=== PATIENT | male | born 1985 | race Caucasian/White ===

== ENCOUNTER 2024-06-27 20:18 | Day surgery (SDC) | payer BC, SELFPAY ==
[2024-06-27] VITALS (7 sets, daily range): BP systolic 122–142; BP diastolic 68–102; BMI 25.8; BMI 25.7
--- NOTE | 2024-06-27 14:36 | ED.GENMED ---
History of Present Illness
General
Chief Complaint: Abdominal Pain
Source: patient
Time Seen by Provider: 06/27/24 13:54
History of Present Illness
History of Present Illness:
39-year-old male who presents with mid abdominal pain that now radiates to right lower quadrant. Patient states that started with some discomfort last night and then had diarrhea. Took some Pepto-Bismol and was able to sleep but today the pain
persisted. Did have an episode of nausea and vomiting. Seen at urgent care and sent for further evaluation. No fevers. No previous surgeries.
Past History
Past History
ED Past Medical History: GERD
Phy Exam
Physical Exam
Physical Exam:
CONSTITUTIONAL Patient alert and oriented to person, place and time. Well-appearing. Vital signs reviewed.
HEAD atraumatic, normocephalic.
EYES eyelids normal to inspection, Pupils equally round and reactive to light, Extraocular muscles intact, Conjunctiva normal, Sclera normal.
NECK normal range of motion, Trachea midline, no jugular venous distention.
RESPIRATORY CHEST No respiratory distress noted, Chest expansion equal, Bilateral breath sounds clear.
CARDIOVASCULAR regular rate and rhythm, Heart sounds normal.
ABDOMEN moderate right lower quadrant tenderness, Bowel sounds normal. No distention.
BACK normal inspection, no obvious deformities
UPPER EXTREMITY range of motion normal, Motor strength normal, no cyanosis, no edema.
LOWER EXTREMITY range of motion normal, Motor strength normal, no cyanosis, no edema.
NEURO Speech normal, No focal motor deficits, [place] coma scale 15, Memory normal, Cranial Nerves intact to screening exam.
SKIN skin warm, dry, and normal in color.
PSYCHIATRIC patient oriented to person place and time, Normal affect.
Course
Orders/Labs/Results
Orders:
Orders
06/27/24 14:22
Morphine Sulfate 4 mg IV NOW STA
Ondansetron Injectable [Zofran] 4 mg IV NOW STA
06/27/24 14:34
0.9% Sodium Chloride 1000 ml [Nss] 1,000 ml IV BOLUS
06/27/24 14:35
CT Abd/pel W Iv And Oral Contr Urgent
Comment:
Reason For Exam: Abdominal pain, N/V
Iohexol [Omnipaque] See Protocol PO NOW STA
06/27/24 15:10
Complete Blood Count/With Diff Urgent
Comprehensive Metabolic Panel Urgent
Lipase Urgent
06/27/24 15:27
Ketorolac [Toradol] 15 mg .ROUTE .STK-MED ONE
06/27/24 15:28
Ketorolac [Toradol] 15 mg IV NOW STA
06/27/24 16:44
Urinalysis Reflex To Culture Urgent
Date Specimen was Collected: 06/27/24
Time Specimen was Collected: 15:03
Urine Microscopic Reflex Cult Urgent
06/27/24 18:59
Piperacillin/Tazo 3.375 Gram [Zosyn] 3.375 gram in 50 ml IV NOW
Abnormal Lab Results
06/27/24 06/27/24
15:10 16:44
WBC 13.6 H 10^3/uL
(4.8-10.8)
Abs Immat Gran (auto) 0.1 H 10^3/uL
(0-0.05)
Absolute Neuts (auto) 11.9 H 10^3/uL
(1.4-6.5)
Absolute Lymphs (auto) 0.9 L 10^3/uL
(1.2-3.4)
Absolute Monos (auto) 0.7 H 10^3/uL
(0.1-0.6)
Neutrophils % 87.4 H %
(42.2-75.2)
Lymphocytes % 6.6 L %
(20.5-51.1)
Glucose 117 H mg/dl
(70-99)
Total Bilirubin 2.9 H mg/dl
(0.2-1.3)
Urine Ketones 3+ A
(Negative)
Ur Occult Blood Reflex 2+ A
(Negative)
Leukocyte Esterase Rfl Trace A
(Negative)
Urine RBC 7-10 A /HPF
(0-2)
Urine Bacteria (Reflex) Few A
(Negative)
06/27/24 15:10
06/27/24 15:10
Vital Signs
Initial and Last Documented VS:
Initial Vital Signs
Temp Pulse Resp BP Pulse Ox
98.1 F 65 18 127/68 99
06/27/24 13:40 06/27/24 13:40 06/27/24 13:40 06/27/24 13:40 06/27/24 13:40
Last Documented Vital Signs
Temp Pulse Resp BP Pulse Ox
98.1 F 86 20 136/82 100
06/27/24 13:40 06/27/24 18:00 06/27/24 18:00 06/27/24 18:00 06/27/24 18:00
MDM/Problems Addressed
MDM/Problems Addressed:
Acute appendicitis
*Radiology
Radiology exam reviewed: preliminary read by ED provider (Thickened appendix noted) and radiology read reviewed
*Pulse Oximetry
Patient hypoxic: no
*Critical Care Note
Total Time (30-74mins, 75-104mins- exclusive of procedures): Not Applicable
Data Reviewed
Source: patient and spouse
Patient Management
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 Amador)
Escalation/DeEscalation of care consider admission/obs:
Case discussed with surgery. Patient stable. Pain controlled. Admit
ED Attending Note
-
Portions of this chart may have been created with voice recognition software.� Occasional wrong word or��sound alike� substitutions may have occurred due to the inherent limitations of voice recognition software.
Discharge Plan
Departure
Patient Disposition: Admit
Date of Disposition: 06/27/24
Time of Disposition: 18:55
Admit to: Med/Surg
Presentation/result/management discussed w/ accepting MD/DO: General surgery
Discharge Problem:
Acute appendicitis
Prescriptions:
No Action
No Current Medications
0
Referrals:
Hao Logan DO [Family Provider] -
Interventions
Interventions:
*Risk Screen - Suicide Last Done: 06/27/24 13:40
*General Assessment Last Done: 06/27/24 13:40
*Neglect/Abuse Screening Last Done: 06/27/24 13:40
ED- Fall Risk Assessment Last Done: 06/27/24 16:06
SX-Qqvzbf-Oxywwtedfz Assessment Last Done: 06/27/24 16:06
Discharge Date and Time
Print Language: LUX[place]BOURGISH
[2024-06-27] MEDS: OMNIPAQUE 50 ML PO (15:12)
[2024-06-27] MEDS: NSS 1000 IV ×2 (15:13→22:34)
[2024-06-27] MEDS: MORPHINE SULFATE 4 MG IV (15:14)
[2024-06-27 15:20] LABS: % Basophils 0.2 % (0-2); % Immature Granulocytes 0.4 % (0-0.5); % Lymphocytes 6.6 % (20.5-51.1); % Monocytes 5.4 % (1.7-9.3); % Neutrophils 87.4 % (42.2-75.2); Absolute Immature Granulocytes 0.1 10^3/uL (0-0.05); Absolute Lymphocytes 0.9 10^3/uL (1.2-3.4); Absolute Monocytes 0.7 10^3/uL (0.1-0.6); Absolute Neutrophils 11.9 10^3/uL (1.4-6.5); Hematocrit 43.7 % (39.0-52.0); Hemoglobin 15.5 g/dL (13.0-18.0); Mean Corp Hgb Conc. 35.5 g/dL (33.0-37.0); Mean Corpuscular Hgb 28.9 pg (27.0-31.0); Mean Corpuscular Volume 81.5 fL (80.0-94.0); Mean Platelet Volume 10.4 fL (7.4-10.4); Nucleated Red Blood Cells % 0 % (-); Platelet Count 157 10^3/uL (130-400); Red Blood Cell Count 5.36 10^6/uL (4.70-6.10); Red Cell Dist. Width 12.2 % (11.5-14.5); White Blood Cell Count 13.6 10^3/uL (4.8-10.8)
[2024-06-27] MEDS: TORADOL 15 MG IV (15:29)
[2024-06-27 15:39] LABS: ALT (SGPT) 20 U/L (0-50); AST (SGOT) 20 U/L (17-59); Albumin 4.7 g/dl (3.5-5.0); Alkaline Phosphatase 64 U/L (38-126); Blood Urea Nitrogen 15 mg/dl (9-20); Calcium 9.6 mg/dl (8.4-10.2); Carbon Dioxide 24 mmol/L (22-30); Chloride 101 mmol/L (98-107); Estimated Creatinine Clearance 104 ml/min; Glucose 117 mg/dl (70-99); Potassium 4.1 mmol/L (3.5-5.1); Sodium 138 mmol/L (135-145); Total Bilirubin 2.9 mg/dl (0.2-1.3); eGFR > 60.00
[2024-06-27 16:09] LABS: Lipase 41 U/L (23-300)
[2024-06-27 16:57] LABS: Urine Albumin Trace (Neg - Trace); Urine Bilirubin Negative (Negative); Urine Character Clear (Clear); Urine Color Amber; Urine Glucose Negative (Negative); Urine Ketone 3+ (Negative); Urine Leukocyte Trace (Negative); Urine Nitrite Negative (Negative); Urine Occult Blood 2+ (Negative); Urine Specific Gravity 1.025 (<1.030); Urine Urobilinogen Negative (Neg - 1+)
[2024-06-27 17:19] LABS: Urine Mucus Many
[2024-06-27 17:20] LABS: Urine Amorphous Seen; Urine Bacteria Few (Negative); Urine White Cell 0-2 /HPF (0-5)
[2024-06-27] MEDS: ZOSYN 50 IV (19:12)
--- NOTE | 2024-06-27 20:13 | HP.FOC2 ---
Addendum entered and electronically signed by Lance Birch MD 06/28/24 09:45:
I saw and examined the patient independently.
The Diet Attendant's note was reviewed and I agree with the note, assessment and plan except where noted below.
Comment: This is a 39-year-old male who presents with a 2-day history of abdominal pain that is migrated to to the right lower quadrant. Exam, imaging, blood work all consistent with acute appendicitis.
Will plan for laparoscopic appendectomy in the OR today.
N.p.o., IV fluids, IV antibiotics.
Risks/Benefits/Alternatives, expected postoperative course and possible complications (bleeding, infection, injury to surrounding structures, acute/chronic pain) discussed at length. Patient wishes to proceed with surgery. All questions answered.
Consent obtained.
I spent roughly 60 minutes in total for the care of this patient today including direct patient care and counseling, reviewing labs, imaging, coordination of care, as well as documentation.
Original Note:
Focused History & Physical
Chief Complaint
HPI:
Chief Complaint: Abdominal pain
HPI / Indication for Planned Procedure:
39 YOM presents to ED with mid abdominal pain that now radiates to right lower quadrant. Patient states abdominal discomfort started last night with diarrhea. Took some Pepto-Bismol without relief, and had nausea and vomiting. Went to the urgent
care and was sent to ED for further evaluation. Patient denies chest pain, SOB, and fevers.
Relevant Past Medical History: Other (Gastritis, Esphogitis - follow GI outpt)
Relevant Social History: Negative
Relevant Family History: Negative
Relevant Past Surgical History: Negative
Review of Systems
Review of Pertinent Systems: All Systems Negative Except for the Following Positives (Lower abdomen tender to touch)
Medication
See Medication form for detailed medications: No
Medication List (including Herbals & OTC):
No Meds [No Current Medications] 06/27/24
Medications Reviewed: Yes
Allergies and Reactions
Patient has Allergies: No
Noted Allergies and Reactions:
Allergy/AdvReac Type Severity Reaction Status Date / Time
No Known Allergies Allergy Unverified 06/27/24 13:39
Pertinent Physical Exam
All Other Systems: Negative
Head/Neck: Normal
Diagnosis / Assessment
Acute Appendicitis
Plan / Procedure
# Acute appendicitis
- NPO
- Pain control
- Abx
- surgery tomorrow
DVT Prophylaxis - SCD
Full code
[2024-06-27] MEDS: MORPHINE SULFATE 2 MG IV (20:53)
[2024-06-27] MEDS: TORADOL 10 MG IV (22:07)
[2024-06-27] MEDS: TYLENOL 650 MG PO (22:33)
--- NOTE | 2024-06-27 22:45 | PTCARENOTE ---
Pt arrived to unit via stretcher and ambulated to bed. Pt was assessed and oriented to the unit. VS taken by PCT BP was 142/86 and temperature 98.2. RN rechecked temp due to pt complaining of feeling hot and generalized body aches, temp was 102 and
HR of 105. Per orders PRN Tylenol was given and JOSE Franco was notified. Will continue to monitor.
[2024-06-28] VITALS (9 sets, daily range): BP systolic 110–127; BP diastolic 56–83
[2024-06-28] MEDS: ZOSYN 50 IV ×3 (01:35→15:02)
[2024-06-28] MEDS: TYLENOL 650 MG PO (02:41)
[2024-06-28 07:13] LABS: Hemoglobin 14.2 g/dL (13.0-18.0); Mean Corp Hgb Conc. 36.4 g/dL (33.0-37.0); Mean Corpuscular Hgb 29.8 pg (27.0-31.0); Mean Corpuscular Volume 81.8 fL (80.0-94.0); Mean Platelet Volume 10.5 fL (7.4-10.4); Platelet Count 130 10^3/uL (130-400); Red Blood Cell Count 4.77 10^6/uL (4.70-6.10); Red Cell Dist. Width 12.1 % (11.5-14.5)
[2024-06-28 07:29] LABS: Blood Urea Nitrogen 13 mg/dl (9-20); Calcium 8.5 mg/dl (8.4-10.2); Carbon Dioxide 23 mmol/L (22-30); Chloride 105 mmol/L (98-107); Estimated Creatinine Clearance 94 ml/min; Glucose 102 mg/dl (70-99); Potassium 3.7 mmol/L (3.5-5.1); Sodium 140 mmol/L (135-145); eGFR > 60.00
[2024-06-28] MEDS: NSS 1000 IV (08:17)
--- NOTE | 2024-06-28 08:57 | W.SUR.PREOP ---
Pre-Operative Surgical Note
-
I have examined this patient prior to the performance of the scheduled procedure.
The patient's condition is unchanged from the time of the current History and
Physical and the patient is able to undergo the scheduled procedure.
[2024-06-28] MEDS: TORADOL 10 MG IV (10:03)
--- NOTE | 2024-06-28 12:30 | W.IMMPOSTOP ---
Surgical Immed Post Op Note
-
Primary Surgeon: Lance Birch MD
Assisting Surgeon: None
Pre-op Diagnosis: Appendicitis
Post-op Diagnosis: Same
Procedure Performed: Laparoscopic appendectomy
Anesthesia Type: General
Specimen / Cultures: Appendix
Estimated Blood Loss: 7 cc
Complications: None
Operative Findings: Gangrenous appendicitis without perforation. Base ligated with a single 0 PDS Endoloop.
POST OP PLAN:
Imaging: None
Labs: Routine AM if still admitted
Diet: Advance to Regular as tolerated
Analgesia: Tylenol 650mg q6 Angi, Irene 5mg q6 PRN, Dilaudid 0.5mg q2h PRN
Neuro/vascular checks: q4h
AC/AP: Hold Therapeutic AC, Ok for DVT PPx
Activity: Ad Natalie
Wound/Incisions/Drains: Routine
Abx: Continue IV antibiotics while admitted, will transition to p.o. x 4 days on discharge
Dispo: RNF, anticipate discharge home later today versus tomorrow pending clinical course.
--- NOTE | 2024-06-28 12:31 | OR.RPT ---
Operative Report
Operative Report
Patient Name: Milton Lux
: 1985
Date of Operation: 06/28/2024
Preoperative Diagnosis: Acute Appendicitis
Postoperative Diagnosis: Same
Procedure(s):
Laparoscopic Appendectomy
Surgeon(s):
Dr. Birch
Metal Punch Press Operator(s):
MONE Marcos
Anesthesia: General
Estimated Blood Loss: 7 cc
Urine Output: None
Drains/Lines/Implants: None
Specimens:
1. Appendix
HPI/Surgical Indications:
This is a 39 year old male who presents with a 2 day history of abdominal pain. Exam, labs and imaging are consistent with acute appendicitis. Risks/Benefits/Alternatives were discussed at length, and the patient agreed to proceed with surgery.
Operative Findings: Gangrenous appendicitis without perforation. Base ligated with a single 0 PDS Endoloop.
Procedure Description:
The patient was placed in the supine position, with the left arm tucked, and general anesthesia was induced. The abdomen was prepared and draped in a sterile fashion so as to expose the entire abdomen. A surgical time out was taken. Abdominal access
was obtained with an 12mm infra-umbilical Main Entry. After confirming no injury on entrance, two additional 5mm ports were placed in the suprapubic area just off midline and in the left lower quadrant. The patient was placed in Trendelenberg with
the right slightly up . The appendix was identified and a window was created in the mesoappendix. The appendix was gangrenous but not perforated. Using a bipolar energy device, the meso appendix was divided. The base of the appendix appeared
uninvolved and was ligated/divided using a 0-PDS Endoloop and the energy device. The area was then covered with omentum. There was some fluid in the right lower quadrant and pelvis which was suctioned up. No irrigation was used. The appendix was
placed in a specimen retrieval bag. Hemostasis was confirmed and the ports were removed under visualization. The specimen was passed off the field. The umbilical port was closed with a [id number] 0-PDS and the skin for all three ports was
closed with interrupted monocryls and covered with dermabond. The patient was awoken from anesthesia in good condition and transported to the recovery area.
I was the attending physician and performed the procedure with assistance from the NE[employer] INSTALLER student above. I was present for all portions of the case
Lance Birch MD
--- NOTE | 2024-06-28 13:30 | PTCARENOTE ---
Pt returned from PACU. VS stable. SR on monitor. Pt co tenderness at lap sites. Lap sites dry and intact with surgical glue intact. Pt resting in bed and oriented to surroundings.
[2024-06-28] MEDS: ULTRAM 50 MG PO (14:35)
--- NOTE | 2024-06-28 14:40 | W.DS.TRANS ---
DC Summary - Windows Software Engineer
-
Discharge Instructions:
Discharge Diagnosis/Procedures Appendicitis status post laparoscopic
appendectomy
Diet Regular,As tolerated
Activity No strenuous activity
Driving Restrictions No driving for 24 hours
Bathing Restrictions OK to Shower
Instructions:
Stand-Alone Forms:
Changes to Home Medications: No
Discharge Medications:
DC Medications w/original date entered in [employer]
acetaminophen 325 mg tablet 650 mg (2 x 325 mg) PO Q4HPRN PRN mild pain #1 tab 06/28/24
amoxicillin 875 mg-potassium clavulanate 125 mg tablet 1 tab PO Q12 antibiotic #8 tabs 06/28/24
ibuprofen 200 mg tablet 400 - 600 mg (2 - 3 x 200 mg) PO Q6HPRN PRN moderate pain #1 tab 06/28/24
tramadol 50 mg tablet 25 - 50 mg (0.5 - 1 x 50 mg) PO Q6HPRN PRN severe pain/breakthrough pain #8 tabs 06/28/24
Home Medication Changes
Pending Results: No
--- NOTE | 2024-06-28 16:23 | CM ---
met with patient and at bedside.patient amb i ,is I with his adl,dr benson is his pcp and he getshis meds from [facility] in [place].he has n poa
patient has never had a vn or been to ip rehab in pastpatient is adm with a lap appy,he is walking,eating,voiding and stable to dc home with no needs.
== END 2024-06-28 16:25 | disposition home or self-care (01) ==
LOC: PACU 20:18
PROVIDERS: Nurse Practitioner Gerontology; ATTENDING PHYSICIAN Surgery; EMERGENCY PHYSICIAN Emergency Medicine; FAMILY PHYSICIAN Family Medicine
PROC: 0DTJ4ZZ Resection of Appendix, Percutaneous Endoscopic Approach (ICD-10-PCS; 2024-06-27)
DX: K35.80 Unspecified acute appendicitis (principal)
CPT/HCPCS: 44970; 88304; 74177; 80048; 80053; 81003; 81015; 83690; 85025; 85027; 96361; 96365; 96375; 99284; C1776; Q9967